=== PATIENT | female | born 1955 ===

== ENCOUNTER 2019-06-02 06:41 | Day surgery (SDC) | payer OTHER | END 2019-06-02 11:45 | disposition home or self-care (01) | LOC: AMB-ENDOS 06:41 | DX: Z12.11 Encounter for screening for malignant neoplasm of colon (principal) ==

== ENCOUNTER 2020-07-21 17:24 | Emergency (ER) | payer OTHER ==
[~2020-07-21] VITALS: Ht 157.5 cm; Wt 87.1 kg
== END 2020-07-22 02:29 | disposition home or self-care (01) ==
LOC: ER 17:24 → CPU-OBS 18:07 → ER 07-22 02:29
DX: G45.8 Other transient cerebral ischemic attacks and related syndromes (principal); I16.1 Hypertensive emergency; I10 Essential (primary) hypertension; R20.0 Anesthesia of skin; Z03.818 Encounter for observation for suspected exposure to other biological agents ruled out
CPT/HCPCS: G0378; G0379; 93005

== ENCOUNTER 2020-12-06 06:27 | Emergency (ER) | payer OTHER ==
[~2020-12-06] VITALS: Ht 157.5 cm; Wt 81.2 kg
[2020-12-06] MEDS ORDERED: GLUMETZA1000 MG PO (06:45)
[2020-12-06] MEDS ORDERED: COZAAR100 MG (06:46)
[2020-12-06] MEDS ORDERED: PLAVIX75 MG (06:47)
[2020-12-06] MEDS ORDERED: LIPITOR40 M1 (06:48)
[2020-12-06] MEDS ORDERED: KETO10TA2 PO (11:10)
[2020-12-06] MEDS ORDERED: NORFLEX100MG PO (11:10)
== END 2020-12-06 11:25 | disposition home or self-care (01) ==
LOC: ER 06:27
DX: M79.661 Pain in right lower leg (principal)